=== PATIENT | female | born 1965 | race Two or more races ===

== ENCOUNTER 2020-11-21 13:06 | Inpatient (IN) | payer MEDICAID ==
[~2020-11-21] VITALS: Ht 157.5 cm; Wt 90.1 kg
[2020-11-21] MEDS ORDERED: ASPirin 81 mg TAB PO ONE (13:30)
[2020-11-21 14:04] LABS: Basophils # (auto) 0 10 ^3/uL (0-0.2); Basophils % (auto) 0.4 % (0.0-2.0); Eosinophils # (auto) 0.1 10 ^3/uL (0-0.8); Eosinophils % (auto) 1.6 % (0.0-7.0); Hematocrit 43.6 % (36.0-46.0); Hemoglobin 14.5 g/dL (12.2-16.2); Lymphocytes # (auto) 2.5 10 ^3/uL (0.4-5.4); Mean Corpuscular Hemoglobin 28.1 pg (28.0-32.0); Mean Corpuscular Hgb Conc. 33.3 g/dL (32.0-36.0); Mean Corpuscular Volume 84.3 fL (80.0-100.0); Monocytes # (auto) 0.7 10 ^3/uL (0-1.3); Monocytes % (auto) 7.7 % (0.0-12.0); Neutrophils # (auto) 5.8 10 ^3/uL (1.6-8.6); Neutrophils % (auto) 63.3 % (37.0-80.0); Platelet Count (auto) 302 10^3/uL (140-450); Red Blood Cells 5.17 10^6/uL (4.0-5.20); Red Cell Distribution Width 13.7 % (11.8-14.3); White Blood Cell 9.2 10^3/uL (4.4-10.8)
[2020-11-21 14:20] LABS: Alanine Aminotransferase 46 U/L (13-56); Albumin 3.7 g/dL (3.4-5.0); Anion Gap 5 (5-15); Aspartate Aminotransferase 25 U/L (15-37); Blood Urea Nitrogen 13 mg/dL (7-18); Calcium 9.3 mg/dL (8.5-10.1); Carbon Dioxide 28 mmol/L (21-32); Chloride 110 mmol/L (98-107); Glucose 89 mg/dL (74-106); Potassium 4.4 mmol/L (3.5-5.1); Sodium 143 mmol/L (136-145)
[2020-11-21 14:25] LABS: Alkaline Phosphatase 137 U/L (45-117); BUN/Creatinine Ratio 21.3; Bilirubin, Total 0.3 mg/dL (0.2-1.0); GFR African American 131 mL/min; GFR Non-African American 109 mL/min; Total Protein 7.9 g/dL (6.4-8.2)
[2020-11-21 14:25] LABS: Urine Bacteria FEW /hpf (None Seen); Urine Blood Negative /uL (Negative); Urine Mucus FEW (None Seen); Urine Specific Gravity 1.018 (1.001-1.035); Urine WBC 54 /hpf (0 - 5)
[2020-11-21] MEDS ORDERED: NITROGLYCERIN 0.4 MG SL TAB SL PRN (16:00)
[2020-11-21] MEDS ORDERED: cefTRIAXone 1GM/50ML D5W 50 ML IV ONE (16:00)
[2020-11-21] MEDS ORDERED: ONDANSETRON HCL 4 MG/2 ML VIAL IV PRN (16:00)
[2020-11-21] MEDS ORDERED: HYDROcodone-ACET 5/325MG TAB PO PRN (16:00)
[2020-11-21] MEDS ORDERED: MORPHINE SULF INJ 2 MG/ML SYRINGE 1ML IV PRN ×2 (16:00)
[2020-11-21] MEDS ORDERED: NITROGLYCERIN 0.4 MG SL TAB SL ONE (16:00)
[2020-11-21] MEDS ORDERED: LORazepam 2MG/ML-1ML VIAL IV PRN (19:45)
[2020-11-21] MEDS: ACETAMINOPHEN 325 MG TAB PO PRN (20:55)
[2020-11-21] MEDS: FAMOTIDINE 20 MG TAB PO SCH (21:40)
[2020-11-21 22:00] VITALS: BP 140/96
[2020-11-21 22:37] VITALS: BP 140/96
[2020-11-21] MEDS ORDERED: LISI20TA28 PO (22:45)
[2020-11-22 05:00] VITALS: BP 115/54
[2020-11-22 05:41] LABS: Basophils # (auto) 0 10 ^3/uL (0-0.2); Basophils % (auto) 0.7 % (0.0-2.0); Eosinophils # (auto) 0.2 10 ^3/uL (0-0.8); Eosinophils % (auto) 2.6 % (0.0-7.0); Hematocrit 40.6 % (36.0-46.0); Hemoglobin 13.9 g/dL (12.2-16.2); Lymphocytes # (auto) 2.2 10 ^3/uL (0.4-5.4); Lymphocytes % (auto) 32.8 % (10.0-50.0); Mean Corpuscular Hgb Conc. 34.3 g/dL (32.0-36.0); Mean Corpuscular Volume 84.4 fL (80.0-100.0); Monocytes # (auto) 0.5 10 ^3/uL (0-1.3); Monocytes % (auto) 7.9 % (0.0-12.0); Neutrophils # (auto) 3.7 10 ^3/uL (1.6-8.6); Platelet Count (auto) 253 10^3/uL (140-450); Red Blood Cells 4.81 10^6/uL (4.0-5.20); Red Cell Distribution Width 13.7 % (11.8-14.3); White Blood Cell 6.7 10^3/uL (4.4-10.8)
[2020-11-22 06:01] LABS: Alanine Aminotransferase 42 U/L (13-56); Albumin 3.2 g/dL (3.4-5.0); Anion Gap 3 (5-15); Blood Urea Nitrogen 13 mg/dL (7-18); Calcium 8.6 mg/dL (8.5-10.1); Carbon Dioxide 26 mmol/L (21-32); Chloride 113 mmol/L (98-107); Glucose 105 mg/dL (74-106); Magnesium 2.3 mg/dL (1.6-2.6); Potassium 5.3 mmol/L (3.5-5.1); Sodium 142 mmol/L (136-145)
[2020-11-22 06:06] LABS: Alkaline Phosphatase 122 U/L (45-117); Aspartate Aminotransferase 23 U/L (15-37); Bilirubin, Total 0.4 mg/dL (0.2-1.0); GFR African American 129 mL/min; GFR Non-African American 107 mL/min
[2020-11-22 08:30] VITALS: BP 140/84
[2020-11-22] MEDS: cefTRIAXone 1GM/50ML D5W 50 ML IV SCH (09:04)
[2020-11-22] MEDS: FAMOTIDINE 20 MG TAB PO SCH ×2 (09:05→22:37)
[2020-11-22] MEDS: ENOXAPARIN SOD 40 MG/0.4 ML SYRINGE SC SCH (09:05)
[2020-11-22 12:30] VITALS: BP 130/76
[2020-11-22 16:50] VITALS: BP 119/69
[2020-11-22] MEDS: ACETAMINOPHEN 325 MG TAB PO PRN (17:59)
[2020-11-22 22:29] VITALS: BP 126/75
[2020-11-23 05:07] VITALS: BP 132/76
[2020-11-23] MEDS: ACETAMINOPHEN 325 MG TAB PO PRN (06:13)
[2020-11-23 08:00] VITALS: BP 117/69
[2020-11-23 09:00] VITALS: BP 117/69
[2020-11-23] MEDS: cefTRIAXone 1GM/50ML D5W 50 ML IV SCH (10:24)
[2020-11-23] MEDS: FAMOTIDINE 20 MG TAB PO SCH ×2 (10:24→22:10)
[2020-11-23] MEDS: ENOXAPARIN SOD 40 MG/0.4 ML SYRINGE SC SCH (10:25)
[2020-11-23 13:00] VITALS: BP 111/67
[2020-11-23 23:14] VITALS: BP 126/71
[2020-11-24 05:23] VITALS: BP 120/75
[2020-11-24 08:00] VITALS: BP 131/71
[2020-11-24 08:45] VITALS: BP 131/71
[2020-11-24] MEDS: FAMOTIDINE 20 MG TAB PO SCH (10:06)
[2020-11-24] MEDS: cefTRIAXone 1GM/50ML D5W 50 ML IV SCH (10:06)
[2020-11-24] MEDS: ENOXAPARIN SOD 40 MG/0.4 ML SYRINGE SC SCH (10:06)
[2020-11-24 12:01] VITALS: BP 113/73
[2020-11-24 13:00] VITALS: BP 113/73
[2020-11-24 15:10] LABS: Calcium 9.3 mg/dL (8.5-10.1); Potassium 4.1 mmol/L (3.5-5.1)
[2020-11-24 15:14] LABS: BUN/Creatinine Ratio 17.1
== END 2020-11-24 16:42 | disposition home or self-care (01) | DRG 111 ==
LOC: ER 13:06 → TELE 15:56 → TELE-CENTR 20:33
PROVIDERS: ADMIT Internal Medicine; ATTEND Internal Medicine
DX: H81.10 Benign paroxysmal vertigo, unspecified ear (principal); E11.9 Type 2 diabetes mellitus without complications; I10 Essential (primary) hypertension; R00.1 Bradycardia, unspecified; R07.89 Other chest pain; Z20.822 Contact with and (suspected) exposure to COVID-19; F17.290 Nicotine dependence, other tobacco product, uncomplicated; N39.0 Urinary tract infection, site not specified; E66.9 Obesity, unspecified; Z68.34 Body mass index [BMI] 34.0-34.9, adult
CPT/HCPCS: 36415; 70450; 70551; 71045; 80048; 80053; 81001; 83735; 84484; 85025; 87426; 93005; 93306; 96365; 97163; G0378; J0696

== ENCOUNTER 2022-06-05 14:03 | Day surgery (SDC) | payer MEDICAID ==
[2022-06-04 12:11] LABS: Basophils # (auto) 0.1 10 ^3/uL (0-0.2); Basophils % (auto) 0.7 % (0.0-2.0); Eosinophils # (auto) 0.4 10 ^3/uL (0-0.8); Hematocrit 43.3 % (36.0-46.0); Hemoglobin 14.1 g/dL (12.2-16.2); Lymphocytes # (auto) 2.9 10 ^3/uL (0.4-5.4); Lymphocytes % (auto) 21.3 % (10.0-50.0); Mean Corpuscular Hemoglobin 27.9 pg (28.0-32.0); Mean Corpuscular Hgb Conc. 32.5 g/dL (32.0-36.0); Mean Corpuscular Volume 85.7 fL (80.0-100.0); Monocytes # (auto) 0.6 10 ^3/uL (0-1.3); Monocytes % (auto) 4.8 % (0.0-12.0); Neutrophils # (auto) 9.5 10 ^3/uL (1.6-8.6); Neutrophils % (auto) 70.2 % (37.0-80.0); Nucleated Red Blood Cells % 0.1 %; Red Blood Cells 5.05 10^6/uL (4.0-5.20); Red Cell Distribution Width 13.4 % (11.8-14.3); White Blood Cell 13.5 10^3/uL (4.4-10.8)
[2022-06-04 12:35] LABS: INR 0.94 (0.9-1.15); Partial Thromboplastin Time 23.6 sec (24.6-33.4)
[2022-06-04 12:49] LABS: Albumin 3.6 g/dL (3.4-5.0); Calcium 9.3 mg/dL (8.5-10.1); Potassium 4.4 mmol/L (3.5-5.1)
[2022-06-04 12:52] LABS: BUN/Creatinine Ratio 24.7; Bilirubin, Total 0.3 mg/dL (0.2-1.0); Total Protein 7.9 g/dL (6.4-8.2)
[~2022-06-05] VITALS: Ht 154.9 cm; Wt 77.1 kg
[~2022-06-05 14:03] MED LIST: IBUP800T27 PO; LISI20TA28 PO; RIZA10TA22 OR; SUMA50TA2 PO
[2022-06-05] MEDS ORDERED: SODIUM CHLORIDE LOCK 10 ML ONE (14:47)
[2022-06-05] MEDS: diphenhdrAMINE HCL 50 MG/1 ML VL ONE ×2 (15:35→15:38)
[2022-06-05] MEDS: MIDAZOLAM HCL 5 MG/ML-1ML VIAL ONE ×2 (15:35→15:39)
[2022-06-05] MEDS: fentaNYL CITRATE 100 MCG/2 ML VL ONE ×2 (15:35→15:39)
[2022-06-05 16:30] VITALS: BP 130/62
== END 2022-06-05 16:50 | disposition home or self-care (01) ==
LOC: GI 14:03
PROVIDERS: ATTEND Internal Medicine Gastroenterology
DX: K59.00 Constipation, unspecified (principal); K63.5 Polyp of colon; K64.8 Other hemorrhoids; Q43.8 Other specified congenital malformations of intestine; I10 Essential (primary) hypertension; G43.909 Migraine, unspecified, not intractable, without status migrainosus; Z20.822 Contact with and (suspected) exposure to COVID-19
CPT/HCPCS: 36415; 45385; 80053; 85025; 85610; 85730; 88305; J1200; J2250; J3010; J7030; U0003

== ENCOUNTER 2022-12-24 14:21 | Emergency (ER) | payer MEDICAID ==
[~2022-12-24] VITALS: Ht 157.5 cm; Wt 80.2 kg
[~2022-12-24 14:21] MED LIST changes: +IBUP-1456 PO; -IBUP800T27 PO; -LISI20TA28 PO; +LISI20TA56 PO
[2022-12-24] MEDS ORDERED: ACET500T58 PO (18:55)
[2022-12-24] MEDS ORDERED: IBUP-1455 PO (18:55)
[2022-12-24] MEDS ORDERED: ZOFR4T PO (18:55)
[2022-12-24 19:06] VITALS: BP 125/77
== END 2022-12-24 19:08 | disposition home or self-care (01) ==
LOC: ER 14:21
DX: B34.9 Viral infection, unspecified (principal); E11.9 Type 2 diabetes mellitus without complications; I10 Essential (primary) hypertension; Z79.899 Other long term (current) drug therapy; Z20.822 Contact with and (suspected) exposure to COVID-19
CPT/HCPCS: 36415; 87426; 87804

== ENCOUNTER 2024-05-21 17:35 | Emergency (ER) | payer MEDICAID, OTHER ==
[~2024-05-21] VITALS: Ht 154.9 cm; Wt 79.0 kg
[~2024-05-21 17:35] MED LIST changes: +ACET500T58 PO; +IBUP-1455 PO; +ZOFR4T PO
[2024-05-21 18:39] VITALS: BP 154/75; PULSE 87; RESP 17; TEMP 98.9; O2SAT 98
--- NOTE | 2024-05-21 19:32 | DVH ---
EXAM: XY FACIAL BONES COMPLETE CLINICAL HISTORY: None COMPARISON: None TECHNIQUE: XY FACIAL BONES COMPLETE Findings/Impression: 3 views of the facial bones. There is no evidence of an acute fracture, dislocation, blastic, or lytic lesions. No radiopaque foreign bodies. The paranasal sinuses, mastoid air cells, and sella turcica are within normal limits. No superficial soft tissue abnormalities.
--- NOTE | 2024-05-21 19:48 | ED.PDOC ---
Back pain HPI HPI Comments THIS IS A 58-YEAR-OLD FEMALE PRESENTS TO THE ED STATUS POST NOSE INJURY. PATIENT STATES EARLIER TODAY SHE PICKED UP A BOX ONTO THE SHELF OF FELL AND LANDED AND HIT HER RIGHT IN THE NOSE. HE IS COMPLAINING OF NOSE PAIN AND SWELLING. STATES HAS NOT USED ANY MEDICATIONS [id number] FOR ANY RELIEF AT THIS TIME. SHE DENIES ANY BLEEDING, OR ANY OTHER KNOWN TRAUMA. Chief Complaint: Facial Injury Time Seen by MD: 18:20 Primary Care Provider: KLEVER Reviewed Notes: Nurses Notes, Medications, Allergies Allergies: Coded Allergies: NO KNOWN ALLERGIES (Unverified , 11/21/20) Home Meds Active Scripts Ondansetron Odt 4MG Tab (ZOFRAN PO) 4 Mg Tb, 4 MG PO Q6HP PRN, #20 TAB ODT TAB-DISSOLVE IN MOUTH, THEN SWALLOW Prov:JESSIE METCALF [facility] 12/24/22 Ibuprofen Micronized (Ibuprofen) 800 Mg Tab, 800 MG PO Q8HP PRN, #20 TAB Prov:JESSIE METCALF [facility] 12/24/22 Acetaminophen (Acetaminophen) 500 Mg Tab, 500 MG PO Q4HP PRN, #30 TAB Prov:JESSIE METCALF [facility] 12/24/22 Reported Medications Sumatriptan Succinate (Imitrex) 50 Mg Tab, 25 MG PO UD, TAB 06/04/22 Rizatriptan Benzoate (RIZATRIPTAN BENZOATE) 10 Mg Tab, 10 MG OR UD, TAB 06/04/22 Ibuprofen (Ibuprofen) 800 Mg Tab, 800 MG PO Q8HP, TAB 06/04/22 Lisinopril (Lisinopril) 20 Mg Tab, 20 MG PO DAILY for 30 Days, MG 11/21/20 Information Source: Patient Mode of Arrival: Ambulatory Past Medical History PAST MEDICAL HISTORY: DM, HTN Surgical History: Denies all surgeries DIESEL ENGINE ASSEMBLER History: No Pertinent DIESEL ENGINE ASSEMBLER History Family History Family History: Reviewed,noncontributory to illness, No family hx of Cancer, No family hx of DM, No family hx of Heart bg, No family hx of HTN, No family hx ofKidney bg, No family hx of Liver bg, No family hx of Lung bg, No family hx of Stroke Social History Smoker: Non-Smoker Alcohol: Denies ETOH Use Drugs: Denies Drug Use Constitutional: denies: chills, diaphoresis, fatigue, fever, malaise, sweats, weakness, others EENTM: denies: blurred vision, double vision, ear bleeding, ear discharge, ear drainage, ear pain, ear ringing, eye pain, eye redness, hearing loss, mouth pain, mouth swelling, nasal discharge, nose bleeding, nose congestion, nose pain, photophobia, tearing, throat pain, throat swelling, voice changes, others Respiratory: denies: cough, hemoptysis, orthopnea, SOB at rest, shortness of breath, SOB with excertion, stridor, wheezing, others Cardiovascular: denies: chest pain, dizzy spells, diaphoresis, Dyspnea on exertion, edema, irregular heart beat, left arm pain, lightheadedness, palpitations, PND, syncope, others Gastrointestinal: denies: abdomen distended, abdominal pain, blood streaked bowels, constipated, diarrhea, dysphagia, difficulty swallowing, hematemesis, melena, nausea, poor appetite, poor fluid intake, rectal bleeding, rectal pain, vomiting, others Genitourinary: denies: abnormal vagina bleeding, burning, dyspareunia, dysuria, flank pain, frequency, hematuria, incontinence, pain, , vagina discharge, urgency, others Neurological: denies: dizziness, fainting, headache, left sided numbness, left sided weakness, numbness, paresthesia, pre-existing deficit, right sided numbness, right sided weakness, seizure, speech problems, tingling, tremors, weakness, others Musculoskeletal: reports: others (NOSE PAIN); denies: back pain, gout, joint pain, joint swelling, muscle pain, muscle stiffness, neck pain Integumetry: reports: bruises; denies: change in color, change in hair/nails, dryness, laceration, lesions, lumps, rash, wounds, others Hematologic/Lymphatic: denies: anemia, blood clots, easy bleeding, easy bruising, swollen glands, others Endocrine: denies: excessive hunger, excessive sweating, excessive thirst, excessive urination, flushing, intolerance to cold, intolerance to heat, unexplained weight gain, unexplained weight loss, others Psychiatric: denies: anxiety, bipolar disorder, depression, hopeless, panic disorder, schizophrenia, sleepless, suicidal, others Physical Exam General Appearance: No Apparent Distress, Normal HEENT: Head (SUPERFICIAL ABRASION NOTED ACROSS BRIDGE OF NOSE WITH MILD ECCHYMOSIS AND EDEMA. NO NOTED BLEEDING OR DRIED BLOOD IN THE NARES.), Pharynx Normal Neck: Full Range of Motion, Non-Tender Respiratory: Chest Non-Tender, Lungs Clear, No Accessory Muscle Use, No Respiratory Distress, Normal Breath Sounds Cardiovascular: No Murmur, Normal Peripheral Pulses, Regular Rate/Rhythm Breast Exam: Deferred Gastrointestinal: Non Tender, Soft Genitalia: Deferred Pelvic: Deferred Rectal: Deferred Extremities: Normal capillary refill, Normal inspection, Normal range of motion, Non-tender, No pedal edema Musculoskeletal : Apperance: Normal Neurologic: Alert, credit collections manager II-XII nml as Tested, No Motor Deficits, Normal Affect, Normal Mood, No Sensory Deficits Cerebellar Function: Normal Reflexes: Normal Skin: Dry, Normal Color, Warm Lymphatic: No Adenopathy Was a procedure done? Was a procedure done?: No Back Pain Differential Dx Differential Diagnosis: Fracture X-Ray, Labs, Meds, VS Vital Signs Date Time Temp Pulse Resp B/P (MAP) Pulse Ox O2 Delivery O2 Flow Rate FiO2 05/21/24 18:39 98.9 87 17 154/75 (101) 98 98.9 05/21/24 18:39 87 17 98 Room Air 05/21/24 17:49 98.9 87 17 154/75 (101) 98 Current Medications Medications (Trade) Dose Ordered Sig/Cleo Route Start Time Stop Time Status Last Admin Ibuprofen (Motrin Tablet) 800 mg ONCE ONCE PO 05/21/24 20:00 05/21/24 20:01 DC 05/21/24 19:54 X-Ray, Labs, Meds, VS Comment FACIAL BONE X-RAY SHOWS NO FRACTURES. ADVISED PATIENT TO USE ICE AND [id number] IBUPROFEN FOR THE PAIN. FOLLOW UP WITH PCP IN 2-3 DAYS NECESSARY CONSIDER FURTHER IMAGING SUCH CT IF PAIN AND SWELLING CONTINUES. RETURN ER PRECAUTIONS GIVEN. PATIENT AGREES WITH DISCHARGE PLAN OF CARE. Time of 1ST Reevaluation: 19:47 Reevaluation 1ST: Improved Patient Education/Counseling: Diagnosis, Treatment, Prognosis, Need For Follow Up Family Education/Counseling: No Family Present Departure 1 Departure Time of Disposition: 19:47 Impression: Primary Impression: Contusion of nose, initial encounter Disposition: HOME / SELF CARE / HOMELESS Condition: Stable Discharged With: Self Critical Care Note Critical Care Time?: No Stability Stability form required: No ARSENIO,KATHRYN ECOLOGICAL TECHNICAL OFFICER May 21, 2024 19:48
[2024-05-21] MEDS: IBUPROFEN 800 MG TAB PO ONE (19:54)
== END 2024-05-21 20:11 | disposition home or self-care (01) ==
LOC: ER 17:35
DX: S00.33XA Contusion of nose, initial encounter (principal); E11.9 Type 2 diabetes mellitus without complications; I10 Essential (primary) hypertension; Z79.899 Other long term (current) drug therapy; X58.XXXA Exposure to other specified factors, initial encounter; Y93.89 Activity, other specified; Y92.89 Other specified places as the place of occurrence of the external cause; Y99.8 Other external cause status
CPT/HCPCS: 70140